=== PATIENT | male | born 1950 | race Caucasian/White ===

== ENCOUNTER 2019-12-05 10:33 | Emergency (ER) | payer OTHER, SELFPAY ==
[2019-12-05 10:39] VITALS: BP 180/81; PULSE 53; RESP 16; TEMP 36; O2SAT 100
--- NOTE | 2019-12-05 11:02 | W.ED.GENAD ---
Discharge Plan Disposition Patient Disposition: HOME Condition: Stable Discharge Details Chief Complaint: Orthopedic Clinical Impression: Trigger finger Primary Care Provider: [place] Provider: Sarah Conte Home Meds and New Rx's Prescriptions: Continued Stateless Dream topical DAILY RF: 0 Discharge Instructions Instructions: Trigger Finger (ED) Additional Instructions: Follow up with primary care provider in 3-5 days. Return to ED sooner if any worsening or concerns. You were placed on a call list for Orthopedic follow up sooner. Wear splint as directed at night. Take Ibuprofen every 6 hours as needed for pain and swelling. Medical Decision Making Patient has had chronic tenderness and d3rd finger locking up at night. He has tenderness and swelling over the palmar surface of his MCP. He is requesting a steroid injection. Reportedly has a appointment with Ortho in 1 month. Will put him on the call list for Ortho follow up sooner if deemed neccessary. Offered patient a finger splint to wear at night, which he refused. Discussed Ibuprofen for pain. HPI General Date/Time Provider Initiated Documentation: 12/05/19 10:41. History of Present Illness 69 year old M presents to the emergency department with the chief complaint of Hand pain, described as moderate, with intensity rated at 4. Quality is described as aching, and is localized to the right and upper extremity (Hand palmar surface). Patient reports no radiation. Patient started experiencing this year(s) (5) No relieving factors improve symptom(s), Patient notes no other symptoms.. Patient did receive the following treatments prior to arrival, none Related Data Home Medications Medication Instructions Recorded Confirmed Stateless Dream TOPICAL DAILY 12/05/19 Allergies Allergy/AdvReac Type Severity Reaction Status Date / Time Penicillins Allergy Anaphylaxsi Unverified 12/05/19 10:43 s General Stated Complaint: Orthopedic MELE: 4 Review of Systems All systems reviewed & are unremarkable except as noted in HPI and below Respiratory Respiratory: Reports system reviewed and no additional complaints, except as docu Gastrointestinal Gastrointestinal: Reports system reviewed and no additional complaints, except as docu Musculoskeletal Musculoskeletal: Reports stiffness (Right hand palmar swelling over MCP joint) [facility] Social History Smoking/Tobacco Use Status: Former Tobacco Use Drug use: Never Exam Extrem Right upper extremity: normal capillary refill and hand Details: abnormal to inspection (Swelling over palmar surface MCP), tenderness and abnormal ROM of finger (Pain with full flexion. Full ROM ); no foreign bodies and no puncture wound; no cyanosis and no edema Hand/finger images: 1. Swelling and tenderness to palpation Course Vital Signs Vital signs: Vital Signs Temperature 36 C L 12/05/19 10:39 Pulse 53 L 12/05/19 10:39 Respiratory Rate 16 12/05/19 10:39 Blood Pressure 180/81 H 12/05/19 10:39 Pulse Oximetry 100 12/05/19 10:39 Temperature 36 C L 12/05/19 10:39 Temperature Source Skin 12/05/19 10:39 Pulse 53 L 12/05/19 10:39 Respiratory Rate 16 12/05/19 10:39 Respiratory Effort Non-Labored 12/05/19 10:39 Blood Pressure 180/81 H 12/05/19 10:39 Blood Pressure Position Sitting 12/05/19 10:39 Pulse Oximetry 100 12/05/19 10:39 Oxygen Delivery Method Room Air 12/05/19 10:39 Oxygen Flow Rate 0 12/05/19 10:39 Pain Level 2 12/05/19 10:39
== END 2019-12-05 11:18 | disposition home or self-care (01) ==
PROVIDERS: Emergency Provider Registered Nurse Emergency
DX: M65.331 Trigger finger, right middle finger (principal)
CPT/HCPCS: 99282

== ENCOUNTER 2020-05-01 02:40 | Outpatient (CLI) | payer OTHER, SELFPAY ==
--- NOTE | 2020-05-01 | DI.MRI_ITS ---
EXAM: MR LUMBAR SPINE WO/W CLINICAL HISTORY: LOW BACK PAIN,M54.5,PROSTATE CA,C61, ? METS. TECHNIQUE: Multiplanar multisequence MRI of the Lumbar Spine was performed. CONTRAST MATERIAL: IV Contrast: 17 mL of Dotarem contrast administered. COMPARISON: No exams were available for comparison FINDINGS: Bones: The last intervertebral disc space is designated the L5/S1 level for the numbering purpose of this examination. The vertebral body heights are well maintained. Alignment is satisfactory. There i s fatty marrow replacement in the sacrum and inferior endplate of L5, presumably secondary to radiati on therapy. The more superior vertebral bodies show some red marrow reconversion. There is high signa l on T2 and STIR images at the right lateral aspect of the T1 vertebral body corresponding to promine nt osteophyte. This likely represents degenerative signal change. Cord: The conus tip ends at the T12 level. It is of normal size and signal intensity. T12-L1: No disc herniations or bulges are present. L1-2: There are endplate osteophytes. There is a focal left lateral disc protrusion without apparent nerve impingement. There are facet joint degenerative changes but no significant neural foraminal na rrowing or central canal stenosis. L2-3: There is mild concentric disc bulging and mild facet degenerative changes combining to cause mi ld bilateral neural foraminal narrowing. L3-4: Mild disc bulging. Facet degenerative changes and ligamentous hypertrophy creating mild centra l canal stenosis and moderate bilateral neural foraminal narrowing. L4-5: Prominent facet degenerative changes and ligamentous hypertrophy as well as mild concentric di sc bulging. There is mild spondylolisthesis. There is moderate to severe central canal stenosis and m oderate bilateral neural foraminal narrowing. There is high signal around the facet joints at this lo cation. L5-S1: Endplate osteophytes, eccentric toward the left. Severe narrowing of the left side of the disc . Mild concentric disc bulging. Facet degenerative changes encroaching on the left neural foramen to moderate to severe degree. Soft tissues: The visualized SI joints and sacrum are well maintained. The paraspinal soft tissues ar e unremarkable. The aorta is normal in diameter. There is no evidence of suspicious enhancement. 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 Multilevel degenerative changes of the discs and facet j oints, greatest at L 4- 5 where there is moderate to severe central canal stenosis as well as neural foraminal narrowing. No metastatic lesions are identified. DATA REPOSITORY:
[2020-05-01] MEDS: Gadoterate meglumine 20 ML VIAL 17 ML IVP (11:41)
[2020-05-01] MEDS: Normal Saline Flush 10 ML SYR IVP (11:41)
== END 2020-05-01 03:00 ==
PROVIDERS: Visit Provider Family Medicine
DX: C61 Malignant neoplasm of prostate (principal); M54.5 Low back pain; M51.37 Other intervertebral disc degeneration, lumbosacral region; M48.07 Spinal stenosis, lumbosacral region
CPT/HCPCS: 72158

== ENCOUNTER 2020-06-03 15:43 | Outpatient (CLI) | payer OTHER, SELFPAY ==
--- NOTE | 2020-06-03 13:30 | DI.RAD_ITS ---
EXAM: XR KNEE LT 4V AP,LAT,MARY,PAT CLINICAL HISTORY: left knee pain. TECHNIQUE: 2D digital imaging was performed. COMPARISON: No exams were available for comparison FINDINGS: There are mild degenerative changes of the left knee. Postsurgical changes of a prior ACL repair are noted. No acute fracture or dislocation is present. The bones are normally mineralized. The soft tissues are unremarkable. IMPRESSION: Mild degenerative changes and postsurgical changes of the left knee. DATA REPOSITORY: RADIATION DOSE DELIVERED:
== END 2020-06-03 16:03 ==
PROVIDERS: Visit Provider Student in an Organized Health Care Education/Training Program
DX: M25.562 Pain in left knee (principal); Z98.890 Other specified postprocedural states; M17.12 Unilateral primary osteoarthritis, left knee
CPT/HCPCS: 99203; 99214; 73564

== ENCOUNTER 2020-06-07 03:46 | Outpatient (CLI) | payer OTHER, SELFPAY ==
--- NOTE | 2020-06-07 08:45 | DI.MRI_ITS ---
EXAM: MR LOWER JOINT LT WO CLINICAL HISTORY: LT KNEE PAIN, INTERNAL DERANGEMENT, M23.92. TECHNIQUE: Multiplanar multisequence MRI was performed. COMPARISON: CR XR KNEE LT 4V AP,LAT,MARY,PAT from 06/03/2020 FINDINGS: BONES: Marrow edema is seen in the medial femoral condyle and the proximal tibia. There is artifact from the prior ACL repair. JOINTS: Mild thinning of the articular cartilage is seen in the medial femoral tibial joint. There i s a small amount of fluid in the joint space. TENDONS: Extensor mechanism: Unremarkable. Medial retinaculum: Unremarkable. Lateral retinaculum: Unremarkable. Popliteus: Unremarkable. MUSCLES: Unremarkable. MENISCI: There is increased signal seen in the body of the medial meniscus suspicious for tear. Ther e is also increased signal seen in the root of the medial meniscus. Horizontal increased signal is s een in the lateral meniscus consistent with degeneration. SOFT TISSUES: There is a popliteal cyst present. LIGAMENTS: Anterior Cruciate: The ACL repair is unremarkable. Posterior Cruciate: Unremarkable. Medial Collateral:There is thickening of the proximal medial collateral ligament. There is also incr eased signal in the fibers deep to the ligament. Lateral Collateral: Unremarkable. OTHER: IMPRESSION: 1. Medial meniscal tear as described above. 2. Thickening of the proximal medial collateral ligament as described above. Findings suspicious for partial tear/sprain. 3. Bone contusions involving the medial femoral condyle and the proximal tibia. 4. Intact ACL repair. DATA REPOSITORY:
== END 2020-06-07 04:06 ==
PROVIDERS: Visit Provider Student in an Organized Health Care Education/Training Program
DX: S83.242A Other tear of medial meniscus, current injury, left knee, initial encounter (principal); S70.12XA Contusion of left thigh, initial encounter; S80.12XA Contusion of left lower leg, initial encounter
CPT/HCPCS: 73721

== ENCOUNTER → 2020-06-17 09:47 | Outpatient (BNVA) | payer OTHER, SELFPAY | PROVIDERS: Visit Provider Student in an Organized Health Care Education/Training Program | DX: M17.12 Unilateral primary osteoarthritis, left knee (principal); M23.304 Other meniscus derangements, unspecified medial meniscus, left knee | CPT/HCPCS: 20610; 99213; J1040 ==

== ENCOUNTER 2020-09-30 00:28 | Outpatient (CLI) | payer OTHER, SELFPAY ==
--- NOTE | 2020-09-30 | DI.US_ITS ---
EXAM: US AAA SCREENING CLINICAL HISTORY: SCREENING FOR AAA,FORMER SMOKER, [facility],Z00.00 COMPARISON: No exams were available for comparison FINDINGS: Abdominal Aorta: Proximal: 2.8 x 2.6 cm Mid: 2.2 x 2.5 cm Distal: 2.1 x 2.6 cm Iliac's: Right: 1.1 x 1.6 cm Left: 1.3 x 1.6 cm Mild atherosclerosis is present. IMPRESSION: No evidence of abdominal aortic aneurysm. DATA REPOSITORY:
== END 2020-09-30 00:48 ==
PROVIDERS: Visit Provider Family Medicine
DX: Z87.891 Personal history of nicotine dependence (principal)
CPT/HCPCS: 76706

== ENCOUNTER 2020-10-30 19:33 | Outpatient (REF) | payer OTHER, SELFPAY ==
[2020-11-01 14:46] LABS: COVID-19 RT-PCR UVMMC Result Negative (Negative)
== END 2020-10-30 19:53 ==
LOC: NCHCN 19:33
PROVIDERS: Visit Provider Physician Assistant
DX: Z11.59 Encounter for screening for other viral diseases (principal)
CPT/HCPCS: U0003

== ENCOUNTER → 2020-12-02 01:12 | Outpatient (CLI) | payer OTHER, MEDICARE, SELFPAY ==
--- NOTE | 2020-12-02 09:15 | DI.RAD_ITS ---
EXAM: XR HIP PELVIS ADULT BL CLINICAL HISTORY: LT HIP PAIN, M25.552. H/O PROSTATE CA. TECHNIQUE: 2D digital imaging was performed. COMPARISON: No exams were available for comparison FINDINGS: There are mild degenerative changes of the hips bilaterally. Mild degenerative changes are seen in t he lower lumbar spine. The sacroiliac joints and symphysis pubis are unremarkable. The bones are in tact. No suspicious lytic or sclerotic lesions are seen. Vascular calcifications are seen in the so ft tissues. IMPRESSION: Mild degenerative changes of the hips bilaterally. DATA REPOSITORY: RADIATION DOSE DELIVERED:
== END ==
PROVIDERS: PCP Family Medicine; Visit Provider Family Medicine
DX: M16.0 Bilateral primary osteoarthritis of hip (principal)
CPT/HCPCS: 73521

== ENCOUNTER → 2020-12-06 08:17 | Outpatient (BNVA) | payer OTHER, MEDICARE, SELFPAY | PROVIDERS: PCP Family Medicine; Visit Provider Student in an Organized Health Care Education/Training Program | DX: M17.12 Unilateral primary osteoarthritis, left knee (principal) | CPT/HCPCS: 20610; 99212; J1040 ==

== ENCOUNTER → 2021-05-08 03:02 | Outpatient (CLI) | payer MEDICARE, SELFPAY ==
--- NOTE | 2021-05-08 | DI.MRI_ITS ---
Exam(s) MR UPPER JOINT RT WO EXAM: MR UPPER JOINT RT WO CLINICAL HISTORY: RT ROTATOR CUFF TEAR,M75.101,ACUTE INJURY,WEAKNESS C/W TEAR TECHNIQUE: Multiplanar multisequence MRI of the shoulder was performed. COMPARISON: There are no plain films of the shoulder available at the time of this MRI interpretatio n. FINDINGS: MARROW:There is no evidence of fracture, Hill-Sachs deformity, bony Bankart lesion, nor ominous osseo us lesions. ROTATOR CUFF MECHANISM: AC JOINT/ACROMIUM: There are advanced degenerative changes in the AC joint, and there are downgoing o steophytes causing impingement. Undersurface of the acromion is flat.. There is no evidence of os acromiale. Supraspinatus: There is a large full-thickness tear with retraction of the musculotendinous junction to the mid humeral head level. Mild muscle atrophy. Infraspinatus: There is also full-thickness tearing of the infraspinatus tendon above the greater tub erosity. There are few remaining strands. No prominent retraction. Some fatty atrophy of the muscle n oted Teres Minor: There is no evidence of tear of the teres minor tendon. However, there is fatty atrophy of the muscle evident. Subscapularis/anterior cuff: Some tendinitis signal but high-grade but no high-grade tear. There is, however, some partial tearing at the insertional fibers on the lateral aspect of the lesser tuberosit y. BICEPS TENDON: The tendon is attenuated within the intertubercular groove consistent with element of tearing. The intra-articular aspect of the tendon is also somewhat attenuated. Biceps anchor appears torn. LABRUM: There is tearing of the anterosuperior labrum. Posterior labrum is intact. Lower half of the anterior labrum is intact. Inferior labrum is intact. Inferior glenohumeral humeral ligament appears intact. GLENOHUMERAL JOINT: Small amount of increased joint fluid. Mild hyaline cartilage degenerative change s. Small osteophyte inferior humeral head. No large osteophytes. There are noted degenerative subarti cular cysts in the osseous glenoid. A few small degenerative cysts are seen in the greater tuberosity . QUADRILATERAL SPACE: No evidence of mass in this region. Visualized triceps tendon appears intact IMPRESSION: 1. There are full-thickness tears of multiple components of the rotator cuff mechanism including supr aspinatus and infraspinatus as well as partial tearing at the insertional aspect of the anterior cuff -subscapularis. The teres minor is not torn but is atrophic. There is no mass evident in the quadrila teral space to explain this. 2. There is significant impingement at the level of the AC joint which exhibits significant degenerat walter change, including downgoing osteophytes. 3. There is tearing of the anterior superior labrum as well as tear of the biceps tendon. 4. Mild degenerative osteoarthritic degenerative changes in the glenohumeral joint DATA REPOSITORY:
== END ==
PROVIDERS: PCP Family Medicine; Visit Provider Family Medicine
DX: S46.011A Strain of muscle(s) and tendon(s) of the rotator cuff of right shoulder, initial encounter (principal); S46.211A Strain of muscle, fascia and tendon of other parts of biceps, right arm, initial encounter; M25.811 Other specified joint disorders, right shoulder; M19.011 Primary osteoarthritis, right shoulder; R53.1 Weakness; M89.8X1 Other specified disorders of bone, shoulder; X58.XXXA Exposure to other specified factors, initial encounter
CPT/HCPCS: 73221

== ENCOUNTER 2021-05-28 14:18 | Outpatient (CLI) | payer OTHER, MEDICARE, SELFPAY ==
--- NOTE | 2021-05-28 14:00 | DI.RAD_ITS ---
Exam(s) XR SHOULDER RT COMPLETE 2+V EXAM: XR SHOULDER RT COMPLETE 2+V CLINICAL HISTORY: right shoulder pain. TECHNIQUE: 2D digital imaging was performed. COMPARISON: No exams were available for comparison FINDINGS: Two views reveal no evidence of fracture or dislocation or abnormal soft tissue calcifications. Ther e are moderate osteoarthritic degenerative changes in the glenohumeral joint including opposing osteo phytes on the inferior articular surfaces of the humeral head, this despite relative preservation of joint space. Degenerative changes are also noted in the ipsilateral acromioclavicular joint. Subacromial space is not diminished in height. There are no calcified loose bodies evident. No ominous osseous lesions. IMPRESSION: Degenerative changes as described above DATA REPOSITORY: RADIATION DOSE DELIVERED:
== END 2021-05-28 14:19 | disposition home or self-care (01) ==
LOC: DIORS 14:18
PROVIDERS: PCP Family Medicine; Referring Provider Family Medicine; Visit Provider Student in an Organized Health Care Education/Training Program
DX: M25.511 Pain in right shoulder (principal); M75.21 Bicipital tendinitis, right shoulder; M75.101 Unspecified rotator cuff tear or rupture of right shoulder, not specified as traumatic; M12.811 Other specific arthropathies, not elsewhere classified, right shoulder
CPT/HCPCS: 20610; 99203; 73030; J1030

== ENCOUNTER 2022-03-24 16:28 | Outpatient (REF) | payer MEDICARE, OTHER, SELFPAY ==
--- NOTE | 2022-03-24 12:30 | SKI_PTH ---
PATIENT: Otoniel Gary LOC: [facility]#:[id number] AGE/SX: 71/M ROOM: RE03/24/[address]: Jason Collado : 1950 BED: DIS: 03/24/2022 SPEC #: [id number] RECD: 03/24/22 17:11 STATUS: LILIANA SANTIZO #: [id number] TAMELA: 03/24/22 12:[address]: Jason Collado DEPT: Surgical Specimen RECD BY: Demi Hunt Tissues: 1 - SKIN BIOPSY(SHAVE/PUNCH) Procedures: SKIN LEVEL 4 Comments: [id number]
[2022-03-24 17:37] LABS: Abs Immature Grans 0.03 10^3/uL (0.0-0.06); Absolute Basophil Count 0.04 10^3/uL (0.0-0.2); Absolute Eosinophil Count 0.12 10^3/uL (0.0-0.7); Absolute Lymphocyte Count 1.35 10^3/uL (1.2-3.4); Absolute Monocyte Count 0.78 10^3/uL (0.1-0.8); Basophils % 0.6; Eosinophils % 1.7; HCT 43.6 % (40.0-50.0); HGB 14.1 g/dL (13.5-17.5); Immature Grans % 0.4; Lymphocytes % 18.7; MCH 29.5 pg (27.0-33.0); MCHC 32.3 % (32.0-36.0); MCV 91 fL (80-95); Monocytes % 10.8; Neutrophils % 67.8; Platelet Count 288 10^3/uL (130-400); RBC 4.78 10^6/uL (4.36-5.78); RDW 13.2 % (11.8-14.1); RDW-SD 44.6 fL; WBC 7.22 10^3/uL (4.4-10.8)
[2022-03-24 20:00] LABS: ALT 37 U/L (16-63); AST 25 U/L (15-37); Alkaline Phosphatase 62 U/L (46-116); Anion Gap 8.9 mmol/L (3-11); BUN 20 mg/dL (7-18); Bilirubin, Direct 0.2 mg/dL (0.0-0.2); Bilirubin, Total 0.4 mg/dL (0.2-1.0); CO2 25.1 mmol/L (21.0-32.0); Calcium 8.8 mg/dL (8.5-10.1); Chloride 105 mmol/L (98-107); Glucose 96 mg/dL (74-106); Potassium 4.3 mmol/L (3.5-5.1); Sodium 139 mmol/L (136-145); Total Protein 6.7 g/dL (6.4-8.2)
== END 2022-03-24 16:29 | disposition home or self-care (01) ==
LOC: NCHCN 16:28
PROVIDERS: PCP Family Medicine; Visit Provider Family Medicine
DX: L57.0 Actinic keratosis (principal); R42 Dizziness and giddiness; R03.0 Elevated blood-pressure reading, without diagnosis of hypertension; F10.10 Alcohol abuse, uncomplicated
CPT/HCPCS: 80048; 80076; 85025; 88305

== ENCOUNTER 2022-06-15 15:46 | Outpatient (REF) | payer MEDICARE, OTHER, SELFPAY ==
[2022-06-15 19:45] LABS: Magnesium 1.7 mg/dL (1.8-2.4); TSH (W/Ref FT4) 5.92 uIU/mL (0.36-3.74); Vitamin B12 439 pg/mL (193-986)
[2022-06-15 20:08] LABS: FREE T4 0.87 ng/dL (0.76-1.46)
== END 2022-06-15 15:47 | disposition home or self-care (01) ==
LOC: NCHCN 15:46
PROVIDERS: PCP Family Medicine; Visit Provider Family Medicine
DX: R53.83 Other fatigue (principal); F10.20 Alcohol dependence, uncomplicated
CPT/HCPCS: 82607; 83735; 84439; 84443

== ENCOUNTER 2023-03-17 19:43 | Outpatient (REF) | payer MEDICARE, SELFPAY ==
[2023-03-17 16:20] LABS: HCT 43.1 % (40.0-50.0); HGB 14.7 g/dL (13.5-17.5); MCH 30.1 pg (27.0-33.0); MCHC 34.1 % (32.0-36.0); MCV 88 fL (80-95); MPV 9.6 fL (8.0-11.0); Platelet Count 268 10^3/uL (130-400); RBC 4.89 10^6/uL (4.36-5.78); RDW 12.8 % (11.8-14.1); WBC 7.19 10^3/uL (4.4-10.8)
[2023-03-17 16:42] LABS: Anion Gap 8.4 mmol/L (3-11); BUN 19 mg/dL (7-18); CO2 26.6 mmol/L (21.0-32.0); Calcium 9.4 mg/dL (8.5-10.1); Chloride 105 mmol/L (98-107); Estimated GFR 78.98 (mL/min/1.73m2); Glucose 114 mg/dL (74-106); Magnesium 2.1 mg/dL (1.8-2.4); Potassium 4.4 mmol/L (3.5-5.1); Sodium 140 mmol/L (136-145); TSH (W/Ref FT4) 4.74 uIU/mL (0.36-3.74)
[2023-03-17 17:24] LABS: FREE T4 0.94 ng/dL (0.76-1.46)
== END 2023-03-17 19:44 | disposition home or self-care (01) ==
LOC: NCHCN 19:43
PROVIDERS: PCP Family Medicine; Visit Provider Family Medicine
DX: E03.9 Hypothyroidism, unspecified (principal); E83.42 Hypomagnesemia; I10 Essential (primary) hypertension; R42 Dizziness and giddiness; R01.1 Cardiac murmur, unspecified; I45.10 Unspecified right bundle-branch block
CPT/HCPCS: 80048; 85027; 83735; 84439; 84443

== ENCOUNTER 2023-04-13 11:35 | Outpatient (CLI) | payer MEDICARE, SELFPAY ==
--- NOTE | 2023-04-13 11:15 | DI.RAD_ITS ---
Exam(s) XR SHOULDER RT COMPLETE 2+V EXAM: XR SHOULDER RT COMPLETE 2+V CLINICAL HISTORY: RIGHT SHOULDER F/U. TECHNIQUE: 2D digital imaging was performed. COMPARISON: CR XR SHOULDER RT COMPLETE 2+V from 05/28/2021 FINDINGS: Two views: No evidence of acute fracture or dislocation. Significant degenerative changes in the glenohumeral j oint are again noted. Although there is no prominent joint space narrowing, there are opposing moder ate size osteophytes on the inferior articular surfaces of the humeral head and osseous glenoid again noted. Subacromial space is mildly diminished. Degenerative changes in the AC joint again noted. No soft tissue calcifications in the subacromial space seen. Subtle lucency in the acromion noted on the Grashey view. This may indicate fracture in the a chromi um. IMPRESSION: Degenerative changes in the glenohumeral joint. There also degenerative changes again noted in the A C joint. Subtle lucency in the a chromium may indicate fracture. Additional images required DATA REPOSITORY: RADIATION DOSE DELIVERED:
== END 2023-04-13 11:36 | disposition home or self-care (01) ==
LOC: DIORS 11:36
PROVIDERS: PCP Family Medicine; Referring Provider Family Medicine; Visit Provider Student in an Organized Health Care Education/Training Program
DX: M75.101 Unspecified rotator cuff tear or rupture of right shoulder, not specified as traumatic (principal); M75.21 Bicipital tendinitis, right shoulder
CPT/HCPCS: 99213; 73030

== ENCOUNTER 2023-06-29 20:05 | Outpatient (REF) | payer MEDICARE, SELFPAY ==
[2023-06-29 16:00] LABS: Abs Immature Grans 0.03 10^3/uL (0.0-0.06); Absolute Basophil Count 0.06 10^3/uL (0.0-0.2); Absolute Lymphocyte Count 1.07 10^3/uL (1.2-3.4); Absolute Monocyte Count 0.69 10^3/uL (0.1-0.8); Absolute Neutrophil Count 4.73 10^3/uL (1.2-6.7); Basophils % 0.9; Eosinophils % 2.9; HCT 43.9 % (40.0-50.0); HGB 14.7 g/dL (13.5-17.5); Immature Grans % 0.4; Lymphocytes % 15.8; MCH 29.8 pg (27.0-33.0); MCHC 33.5 % (32.0-36.0); MCV 89 fL (80-95); MPV 9.7 fL (8.0-11.0); Monocytes % 10.2; Neutrophils % 69.8; Platelet Count 290 10^3/uL (130-400); RBC 4.94 10^6/uL (4.36-5.78); RDW 12.8 % (11.8-14.1); RDW-SD 41.5 fL; WBC 6.78 10^3/uL (4.4-10.8)
[2023-06-29 16:54] LABS: ALT 32 U/L (16-63); AST 25 U/L (15-37); Albumin 4.1 g/dL (3.4-5.0); Alkaline Phosphatase 66 U/L (46-116); BUN 23 mg/dL (7-18); Bilirubin, Total 0.5 mg/dL (0.2-1.0); CREATININE 1.2 mg/dL (0.70-1.30); Calcium 9.1 mg/dL (8.5-10.1); Chloride 103 mmol/L (98-107); Estimated GFR 63.07 (mL/min/1.73m2); Glucose 101 mg/dL (74-106); NT-proBNP 143 pg/mL (<300); Potassium 4.7 mmol/L (3.5-5.1); Sodium 140 mmol/L (136-145); Total Protein 6.8 g/dL (6.4-8.2)
== END 2023-06-29 20:06 | disposition home or self-care (01) ==
LOC: NCHCN 20:05
PROVIDERS: PCP Family Medicine; Visit Provider Family Medicine
DX: R06.09 Other forms of dyspnea (principal)
CPT/HCPCS: 80053; 83880; 85025

== ENCOUNTER 2023-07-15 10:55 | Emergency (ER) | payer MEDICARE, SELFPAY ==
[2023-07-15] VITALS (42 sets, daily range): BP systolic 126–195; BP diastolic 73–110; PULSE 46–73; RESP 10–23; TEMP 36.9; O2SAT 97–100
--- NOTE | 2023-07-15 10:45 | RT.EKG_ITS ---
APPROVED REPORT Exam: Resting ECG Reason for Exam: SOB Patient Location: E HR:46 bpm ECG Measurements Heart Rate 46 AXIS MS 213 P 20 QRSd 165 QRS -69 QT 481 T 5 QTc 423 Conclusion Sinus bradycardia...rate< 60 Atrial premature complex...SV complex w/ short R-R interval RBBB and LAFB...QRSd >120mS, axis(-40,240) sinus bradycardia, left axis, RBBB
--- NOTE | 2023-07-15 11:15 | DI.RAD_ITS ---
Exam(s) XR PORTABLE CHEST AP EXAM: XR PORTABLE CHEST AP CLINICAL HISTORY: cp sob TECHNIQUE: 2D digital imaging was performed of the chest. One image was obtained. An AP view was ob tained. COMPARISON: No exams were available for comparison FINDINGS: MEDIASTINUM: Normal. HEART: Normal. PULMONARY VASCULATURE: Normal. LUNGS: Clear. PLEURAL SPACE: No pleural effusion or pneumothorax. BONE:Within normal limits for the patient's age. OTHER FINDINGS:Normal. IMPRESSION: No acute pulmonary findings. DATA REPOSITORY: RADIATION DOSE DELIVERED:
--- NOTE | 2023-07-15 11:29 | ED.GENADUL_ITS ---
Discharge Plan Disposition Patient Disposition: Home Discharge Details Chief Complaint: SOB Clinical Impression: Shortness of breath Primary Care Provider: Jason Collado ED Provider: Luis Pop Home Meds and New Rx's Prescriptions: No Action amlodipine 5 mg tablet 5 mg PO 1XD Patient Comments: Take 1 tablet by mouth once a day sildenafil 100 mg tablet 100 mg PO 1XD Patient Comments: Take 0.5-1 tablet by mouth daily prn prior to sexual activity Discharge Instructions Instructions: Dyspnea (ED) Additional Instructions: Please follow-up with cardiology at [facility]. Please return to the emergency department for any worsening symptom Medical Decision Making 73-year-old male presents with progressive shortness of breath and fatigue over the last several months, no chest pain, no leg pain, no history of thromboembolic disease, denies history of coronary disease, EKG showing sinus bradycardia left axis with right bundle branch block; bedside ultrasound showing B-lines throughout lung roberson, patient hypertensive on arrival to the 180s, concern for new onset CHF consider recent OR; low suspicion for aortic pathology or PE or infectious etiology given chronicity. Will obtain basic labs chest x- ray; trial of antihypertensive will start with 5 mg hydralazine, Lasix, close reassessment if tolerates 5 mg hydralazine will add remaining 5mg; disposition pending results and reassessment 13: 12 patient resting comfortably, blood pressure and heart rate both improved. However given initial presentation of severe hypotension and bradycardia will assess CT head for causes of possible Frank's reflex however neurologically intact without focality or headache. Pending CT head and second troponin for discharge 15: 41 patient resting comfortably blood pressure greatly improved, heart rate greatly improved, CT negative, 2 troponin negative. Asymptomatic at this time. Patient be given referral to [facility] cardiology, also encouraged [facility] Home care instructions return precautions give HPI General Date/Time Provider Initiated Documentation: 07/15/23 10:56 . HPI Narrative: 73-year-old male presents with progressive fatigue and shortness of breath over the last couple months. Denies chest pain, denies orthopnea, denies leg swelling or pain Related Data Home Medications Medication Instructions Recorded Confirmed amlodipine 5 mg tablet 5 mg PO 1XD 07/15/23 07/15/23 sildenafil 100 mg tablet 100 mg PO 1XD 07/15/23 07/15/23 Allergies Allergy/AdvReac Type Severity Reaction Status Date / Time Penicillins Allergy Anaphylaxsi Unverified 07/15/23 12:17 s General Stated Complaint: SOB MELE: 3 Review of Systems Narrative: Review of Systems Constitutional: Fatigue Eyes: negative ENT: negative Cardiovascular: negative Respiratory: Shortness of breath Gastrointestinal: negative : negative Musculoskeletal: negative Skin: negative Neurologic: negative Psych: negative PFSH All Active Problems (Updated 07/15/23 @ 15:43 by Luis Pop MD) Shortness of breath (Acute) Rotator cuff tear, right (Acute) Tendonitis of long head of biceps brachii of right shoulder (Acute) Rotator cuff tear arthropathy of right shoulder (Acute) Unilateral primary osteoarthritis, left knee (Acute) Meniscus, medial, derangement (Acute) Medical History (Updated 07/15/23 @ 15:43 by Luis Pop MD) Prostate CA Social History Smoking/Tobacco Use Status: Former Tobacco Use Smoking risk assessment performed?: Yes Drug use: Never Current gender identity: male Do you feel safe at home: Yes Do you feel safe in your relationship?: Yes Exam Narrative Exam Narrative: Physical Examination General: alert, awake, cooperative, resting comfortably, no acute distress HEENT: normocephalic, atraumatic; PERRL, EOM intact, conjunctiva normal; no nasal discharge; moist mucous membranes, oral and pharyngeal mucosa normal, tolerating secretions Neck: supple, trachea midline; full ROM Chest: normal to inspection Respiratory: normal respiratory effort, speaking in full sentences, clear to auscultation, no wheezing, rales or rhonchi Cardiac: Bradycardia, regular rhythm, S1S2 intact, no murmurs rubs or gallops GI: abdomen soft, non-tender, non-distended; no palpable mass or hepatosplenomegaly Skin: no lesions, rashes or trauma appreciated Neuro: AAOx3, normal speech, moving all extremities Psych: Appropriate mood and affect Course Vital Signs Vital signs: Vital Signs Temperature 36.9 C 07/15/23 11:03 Pulse 52 L 07/15/23 11:03 Respiratory Rate 20 07/15/23 11:03 Blood Pressure 182/110 H 07/15/23 11:03 Pulse Oximetry 99 07/15/23 11:03 Temperature 36.9 C 07/15/23 11:03 Temperature Source Oral 07/15/23 11:03 Pulse 52 L 07/15/23 11:03 Respiratory Rate 20 07/15/23 11:03 Blood Pressure 182/110 H 07/15/23 11:03 Blood Pressure Position Sitting 07/15/23 11:03 Pulse Oximetry 99 07/15/23 11:03 Oxygen Delivery Method Room Air 07/15/23 11:03 Oxygen Flow Rate 0 07/15/23 11:03
[2023-07-15 11:37] LABS: Abs Immature Grans 0.04 10^3/uL (0.0-0.06); Absolute Basophil Count 0.05 10^3/uL (0.0-0.2); Absolute Eosinophil Count 0.07 10^3/uL (0.0-0.7); Absolute Lymphocyte Count 1.09 10^3/uL (1.2-3.4); Absolute Monocyte Count 0.55 10^3/uL (0.1-0.8); Absolute Neutrophil Count 5.11 10^3/uL (1.2-6.7); Basophils % 0.7; HCT 47.9 % (40.0-50.0); HGB 16.2 g/dL (13.5-17.5); Immature Grans % 0.6; Lymphocytes % 15.8; MCH 29.5 pg (27.0-33.0); MCHC 33.8 % (32.0-36.0); MCV 87 fL (80-95); MPV 8.9 fL (8.0-11.0); Neutrophils % 73.9; Platelet Count 266 10^3/uL (130-400); RDW 12.6 % (11.8-14.1); RDW-SD 39.9 fL; WBC 6.91 10^3/uL (4.4-10.8)
[2023-07-15] MEDS: Aspirin 81 MG CHEW 324 MG CH (11:49)
[2023-07-15] MEDS: Furosemide 100 MG/10 ML VIAL 80 MG IVP (11:49)
[2023-07-15] MEDS: hydrALAZINE 20 MG/ML VIAL 10 MG IVP (11:49)
[2023-07-15 11:50] LABS: INR 1.1 (0.9-1.1); PTT Activated 25.2 sec (21.5-31.9); Prothrombin Time 10.8 sec (9.3-11.0)
[2023-07-15 12:02] LABS: ALT 35 U/L (16-63); AST 21 U/L (15-37); Alkaline Phosphatase 68 U/L (46-116); Anion Gap 10.9 mmol/L (3-11); BUN 16 mg/dL (7-18); Bilirubin, Total 0.8 mg/dL (0.2-1.0); CO2 25.1 mmol/L (21.0-32.0); CREATININE 1.1 mg/dL (0.70-1.30); Calcium 9.1 mg/dL (8.5-10.1); Chloride 101 mmol/L (98-107); Estimated GFR 70.01 (mL/min/1.73m2); Glucose 116 mg/dL (74-106); NT-proBNP 275 pg/mL (<300); Potassium 4.1 mmol/L (3.5-5.1); Sodium 137 mmol/L (136-145); TSH (W/Ref FT4) 4.19 uIU/mL (0.36-3.74); Total Protein 7.4 g/dL (6.4-8.2); Troponin I < 50 ng/L (<or=60)
[2023-07-15 12:21] LABS: FREE T4 0.98 ng/dL (0.76-1.46)
--- NOTE | 2023-07-15 13:00 | DI.CT_ITS ---
Exam(s) CT HEAD WO EXAM: CT HEAD WO CLINICAL HISTORY: htn, bradycardia. TECHNIQUE: Imaging Protocol: Axial computed tomography images with coronal and sagittal reformatted images were created and reviewed COMPARISON: No exams were available for comparison FINDINGS: Ventricles and Extra axial spaces: Normal in size and morphology for the patient's age. Hemorrhage: None. Cerebral parenchyma: There are multiple areas of decreased attenuation in the white matter likely ref lecting small vessel ischemic disease. There is no mass effect or midline shift present. Midline shift: None. Brainstem/Cerebellum: Normal. Calvarium: Normal. Visualized Paranasal sinuses/Mastoids: There is pansinusitis. Soft Tissues: Unremarkable. IMPRESSION: 1. No acute intracranial process. 2. Findings were discussed with the emergency department at 2:57 p.m. on 07/15/2023. RADIATION DOSE DELIVERED: 813.13mGy.cm Total DLP DATA REPOSITORY: All CT scans at this facility are submitted to the National Radiology Data Registry (NRDR) Dose Index Registry (DIR) with the [employer] ([employer]). RADIATION OPTIMIZATION: All CT scans at this facility use at least one of these dose optimization te chniques: automated exposure control; mA and/or kV adjustment per patient size (includes targeted exa ms where dose is matched to clinical indication); or iterative reconstruction.
[2023-07-15 14:57] LABS: Troponin I < 50 ng/L (<or=60)
--- NOTE | 2023-07-15 16:37 | NUR.NOTE ---
Referral given to Care Management to [facility] Cardiology for SOB in one week. Nursing Note:
== END 2023-07-15 15:52 | disposition home or self-care (01) ==
PROVIDERS: Emergency Provider Emergency Medicine; PCP Family Medicine
DX: R06.02 Shortness of breath (principal)
CPT/HCPCS: 80053; 93005; 96374; 96375; 99285; 70450; 71045; 83735; 83880; 84439; 84443; 84484; 85025; 85610; 85730; 93010; 99284; J0360; J1940

== ENCOUNTER → 2023-07-23 13:55 | Outpatient (CLI) | payer OTHER, SELFPAY ==
--- NOTE | 2023-07-23 15:00 | DI.US_ITS ---
APPROVED REPORT EXAM: Comprehensive 2D, Doppler, and color-flow Echocardiogram Patient Location: Out-Patient Scrap Metal Burner: Darryl Jones RDCS (AE) Indications: dizziness, new heart murmur, h/o presyncope, new RBBB Other Information Study Quality: Good Conclusion Normal left ventricular wall thickness and chamber size. Ejection fraction is 60 to 65%. Wall motio n is normal Normal right ventricular size and systolic function Both atria are normal in size. There is an atrial septal aneurysm without evidence of patent foramen ovale Aortic valve is sclerotic and trileaflet with mild regurgitation. There is no aortic stenosis Normal mitral valve with mild regurgitation Normal tricuspid valve with mild regurgitation. Estimated right ventricular systolic pressure is 24 mmHg Both the aortic root and ascending aorta measure approximately 4 cm Wall motion Left Ventricle The left ventricle is normal size. The left ventricular systolic function is normal. The left ventric ular ejection fraction is within the normal range. There is normal left ventricular wall thickness. T here is normal LV segmental wall motion. There is no ventricular septal defect visualized. LVEF is 60 -65%. Right Ventricle The right ventricle is normal size. The right ventricular systolic function is normal. The RVSP is 24 .4 mmHg. Atria The left atrium size is normal. The right atrium size is normal. Atrial septal aneurysm is present wi thout PFO. Aortic Valve The Aortic valve is sclerotic. Aortic valve is trileaflet. There is no aortic valvular stenosis. Mild aortic regurgitation. Mitral Valve The mitral valve is normal in structure. No evidence of mitral valve stenosis. Mild mitral regurgitat ion. Tricuspid Valve The tricuspid valve is normal in structure. There is no tricuspid valve stenosis. Mild tricuspid regu rgitation. Pulmonic Valve The pulmonary valve is normal in structure. There is no pulmonic valvular stenosis. Mild pulmonic reg urgitation. Great Vessels Aortic root is moderately dilated. The ascending aorta is moderately dilated. Aortic arch is not well visualized. IVC is normal in size and collapses >50% with inspiration. Pericardium There is no pericardial effusion. 2D Dimensions IVSD d PLAX 0.93 cm M: 0.6-1.2 Ao Root d 3.99 cm M: 3.1 - 3.7 LVPW d PLAX 0.92 cm M: 0.6 - 1.2 Ao Asc Diam d 4.05 cm M: 2.6 - 3.4 LVID d PLAX 4.90 cm M: 4.2 - 5.8 LVDs 3.15 cm M: 2.5 - 4.0 LV EF Teichholz 64.9 % FS 35.63 % LV EDV (Teich) 112.6 mL LV ESV (Teich) 39.5 mL Stroke Vol Index (Teich) 37.90 M-Mode TAPSE 2.39 cm (M/F) >1.7 Auto EF LV EDV A4C 143.6 mL LV EDV A2C 129.0 mL LV EDV BP 139.7 mL LV ESV A4C 57.7 mL LV ESV A2C 52.4 mL LV ESV BP 54.9 mL LVEF(%) A4C 59.8 % LVEF(%) A2C 59.3 % LVEF(%) BP 60.7 % LV SV A4C 85.9 ml LV SV A2C 76.5 ml LV SV BP 84.8 ml LV CO A4C 4.4 L/min LV CO A2C 3.8 L/min LV CO BP 4.1 L/min HR A4C 50.91 BPM HR A2C 49.11 BPM LV EDV Index (BP) LA Volume LA Length A4C 5.0 cm LA Length A2C LA Area A4C s 10.85 cm2 LA Area A2C s LA Vol A4C A-L 20.04 mL LA Vol A2C A-L LA Vol Biplane A-L LA Vol A4C MOD 19.4 mL LA Vol A2C MOD LA Vol BP MOD RA Volume RA Area A4C 12.1 cm2 RA ESV A4C (A-L) 26.1mL RA Vol/BSA A4C A-L RA Length A4C 4.8 cm RA ESV A4C (MOD) 25.3mL LV Diastology MV E' medial 0.068 (>0.07 m/s) MV E Vmax 0.67 (0.4-1.3 m/s) MV E/E' MED 9.87 (<14) MV A Vmax 0.80 (0.4-1.3 m/s) MV E' lateral 0.079 (>0.1 m/s) E/A Ratio 0.8 MV E/E' LAT 8.44 (<14) MV E' Average 0.074 m/s MV E/E'(average) 9.10 Aortic Valve AoV Vmax 1.87 m/s LVOT Vmax 1.28 m/s AoV Peak Grad 41.2 mmHg LVOT Peak Grad 6.6 mmHg AoV Area (Vmax) 1.99 cm2 LVOT VTI 0.305 m AoV VTI 0.440 m LVOT Mean Grad 3.3 mmHg AoV Mean Cuong. 1.18 m/s LVOT SV 88.20 mL AoV Mean Grad 6.4 mmHg LVOT Diam s 1.90 cm AoV Area (VTI) 2.00 cm2 AV Regurg Peak Gr. 68.40 mmHg Velocity Ratio 0.68 AR Decel Marion 1.7m/sec2 AR DT 2504 msec AR PHT 726 msec AR Vmax 4.14 m/s Mitral Valve MV DT 149 (160-240 msec) Pulmonary Valve PV Vmax 1.18 (0.5-1.5 m/s) RVOT Vmax 0.66 m/s PV Peak Grad 5.6 mmHg RVOT Peak Gr. 1.7 mmHg PV Mean Cuong 0.80 m/s RVOT VTI 0.196 m PV Mean Grad 2.9 mmHg RVOT Mean Gr. 0.9 mmHg Tricuspid Valve RA Pressure 3.00 mmHg TR Vmax 2.31 m/s TR Peak Grad 21.4 mmHg RVSP (TR) 24.4 mmHg
== END ==
PROVIDERS: PCP Family Medicine; Visit Provider Physician Assistant Medical
DX: R42 Dizziness and giddiness (principal); R01.1 Cardiac murmur, unspecified
CPT/HCPCS: 93306

== ENCOUNTER → 2023-09-07 07:11 | Outpatient (CLI) | payer OTHER, SELFPAY ==
--- NOTE | 2023-09-07 | ETT_ITS ---
APPROVED REPORT Exam: Exercise Treadmill Patient Location: Out-Patient Room/Bed: Stress Nurse: Tracey Bradshaw RN Ordering Provider:FRANKLIN ROWAN, Contact Number: [phone] BMI: 28.34 Baseline Rhythm: Sinus Bradycardia Comment: 1st degree AV block, RBBB Indications: BARCLAY Medical History Medical History: Prostate CA, HTN Cardiac Medications: Amlodipine, tadalafil, telmisartan Allergies: Penicillin Cardiac Risk Factors: HTN Previous Cardiac Procedures: None Pretest Chest Pain Characteristics: None Exercise History: Physically active Physical Disabilities: None Lung Sounds: Clear to auscultation Heart Sounds: Bradycardia Stress Test Details Test: Exercise stress testing was performed using a Tripp protocol. Rest Stress HR Resting HR Supine: 44 bpm Max Heart Rate (APMHR): 145 bpm Resting HR Standin bpm Target HR (85% APMHR): 123 bpm Max HR Achieved: 110 bpm % of APMHR: 76 Recovery HR: 54 bpm HR response to stress: Blunted HR response to stress BP Resting BP Supine: 184/90 mmHg Resting BP Standin/88 mmHg Max BP: 185/82 mmHg Recovery BP: 178/82 mmHg BP response to stress: Normal blood pressure response to stress. ECG Resting ECG: Sinus Rhythm, RBBB, 1st degree AV block Ectopy: None Stress ECG: Sinus Tachycardia, RBBB, 1st degree AV block ST Change: Nondiagnostic low heart rate Arrhythmia: Rare PAC, Rare PVC Recovery ECG: Sinus Bradycardia, RBBB, 1st degree AV block Recovery ST Change: Nondiagnostic low heart rate Recovery Arrhythmia: Rare PAC, rare PVC Clinical Reason for Termination: Dyspnea Stress Symptoms: Dyspnea, General Fatigue Exercise duration: 07 min43 sec Highest Stage Reached: Stage 3: 3.4 mph at 14% grade. Exercise capacity: 9.70 METs Angina Score: None Tariq Treadmill Score: 5.7 Rate Pressure Product: [id number] Stress ECG Conclusion 1. Resting electrocardiogram showed a right bundle branch block 2. Patient exercised on the Tripp protocol and completed a workload of 9.7 METS, stopping due to fati katelin 3. Normal blood pressure response to exercise. Peak heart rate achieved was 76% of predicted heart r ate for age 4. The electrocardiographic portion of the test was nondiagnostic due to inadequate heart rate 5. There were no significant dysrhythmias Tariq Treadmill Score is 5.7 which is Low risk. Stress Test Summary STAGE Time (mins) Speed (mph) Grade (%) HR BP SpO2 SYMPTOMS METS Supine 44 184/90 96 Standing 52 166/88 96 1 3 1.7 10 75 140/80 96 Mild SOB 4.5 2 6 2.5 12 89 140/80 Severe SOB 7 3 9 3.4 14 103 10 1 min recovery 65 185/82 96 Mild SOB 3 min recovery 58 180/80 96 SOB resolving 6 min recovery 54 178/82 97 All symptoms resolved Patient unable to reach target HR due to severe SOB.
== END ==
PROVIDERS: PCP Family Medicine; Visit Provider Nurse Practitioner Adult Health
DX: R06.09 Other forms of dyspnea (principal)
CPT/HCPCS: 93017

== ENCOUNTER 2025-07-09 13:42 | Emergency (ER) | payer OTHER, SELFPAY ==
[2025-07-09 13:54] VITALS: BP 161/78; PULSE 48; RESP 16; TEMP 36.7; O2SAT 94
--- NOTE | 2025-07-09 14:00 | DI.US_ITS ---
Exam(s) US LOWER EXTREMITY VENOUS RT EXAM: US LOWER EXTREMITY VENOUS RT CLINICAL HISTORY: swollen x 2 days, eval DVT TECHNIQUE: Right lower extremity venous ultrasound performed using grayscale, color-flow, and spectral Doppler analysis. COMPARISON: No exams were available for comparison FINDINGS: The right common femoral, femoral and popliteal veins demonstrate normal compressibility, augmentation, and color Doppler. The posterior tibial veins are patent. The saphenofemoral junction is unremarkable. There is no evidence of a Ott cyst. The soft tissues are unremarkable. IMPRESSION: No evidence of a right lower extremity DVT. DATA REPOSITORY:
--- NOTE | 2025-07-09 15:16 | ED.GENADUL_ITS ---
Discharge Plan Disposition Patient Disposition: Home Condition: Stable Discharge Details Clinical Impression: Cellulitis of right leg without foot Primary Care Provider: Jason Collado ED Provider: Yajaira Noonan Home Meds and New Rx's Prescriptions: New cefpodoxime 200 mg tablet 200 mg PO BID 10 Days Qty: 20 0RF Rx Instructions: must administer with a meal/food No Action amlodipine 5 mg tablet 5 mg PO 1XD Patient Comments: Take 1 tablet by mouth once a day sildenafil 100 mg tablet 100 mg PO 1XD Patient Comments: Take 0.5-1 tablet by mouth daily prn prior to sexual activity aspirin 81 mg tablet 81 mg PO DAILY Discharge Instructions Instructions: Cellulitis (Skin Infection), Adult ED Additional Instructions: You were seen in the emergency department today for evaluation of right lower extremity swelling. In her department you to full physical examination performed, and had an ultrasound that did not show any evidence of blood clot in the leg. We discussed possibilities for why this is occurring, and I am suspicious for a mild skin and soft tissue infection known as cellulitis. We have started you on an antibiotic called cefpodoxime which you should take twice a day for the next 10 days. If your symptoms do not improve, you develop a fever, weakness or numbness of your right foot, or any other symptoms that cause you concern you need to return for reevaluation. The antibiotic that we have started you on is in a separate class from the penicillins, but please still be mindful of any potential allergic reaction symptoms. Please follow-up with your primary care provider in the next few days to discuss this visit and any symptoms that change, worsen, or persist. Thank you for allowing us to be part of your care. HPI General Mode of arrival: ambulatory . Date/Time Provider Initiated Documentation: 07/09/25 14:04 . Limitations to Documentation: no limitations . Information obtained by: patient, family and old records reviewed . HPI Narrative: This is a 75-year-old male patient presents to the emergency department with 2 to 3 days of gradually worsening swelling and redness of the right lower extremity. The patient reports that he had no preceding trauma or injury, and has otherwise been in his normal state of health. He does not have any history of swelling in his legs prior. [facility]. He denies fevers or chills, shortness of breath, chest pain, weakness, numbness, or tingling of the affected right lower extremity. Does not have significant pain associated with the swelling. Has not taken any medications prior to arrival, denies recent antibiotic use Related Data Home Medications ?Medication ?Instructions ?Recorded ?Confirmed amlodipine 5 mg tablet 5 mg PO 1XD 07/15/23 5 sildenafil 100 mg tablet 100 mg PO 1XD 07/15/2307/09 aspirin 81 mg tablet 81 mg PO DAILY 07/09/2506/16 cefpodoxime 200 mg tablet 200 mg PO BID 10 days #20 ta bs 07/09/25 Previous Rx's ?Medication ?Instructions ?Recorded cefpodoxime 200 mg tablet 200 mg PO BID 10 days #20 ta bs 07/09/25 Allergies Allergy/AdvReac Type Severity Reaction Status Date / Time Penicillins Allergy Anaphylaxsi Verified 07/09/25 13:52 s General Stated Complaint: Vascular MELE: 3 Exam Narrative Exam Narrative: Gen: Awake and alert, in no apparent distress HEENT: Non-icteric sclera Neck: Supple Lungs: No apparent respiratory distress, normal respiratory effort. CV: Appears well perfused Abdomen: Non-distended MSK: Moves 4 extremities without apparent limitation in ROM. The right lower extremity has 1+ peripheral edema with mild warmth, redness, and induration from the ankle to just distal to the knee. He has a few small scabs and cuts in various stages of healing to the lower extremity. He has strong DP pulses, full range of motion of the knee, ankle, and foot, and brisk capillary refill. No sensory deficits noted, patient is ambulatory. Skin: Visualized skin without rashes, cyanosis except as noted above Neuro: Normal Gait, no obvious focal deficits or facial asymmetry. Speaks in full, clear sentences. Psych: Appropriate for situation. Course Vital Signs Vital signs: Vital Signs Temperature 36.7 C 07/09/25 13:54 Pulse 48 L 07/09/25 13:54 Respiratory Rate 16 07/09/25 13:54 Blood Pressure 161/78 H 07/09/25 13:54 Pulse Oximetry 94 07/09/25 13:54 Temperature 36.7 C 07/09/25 13:54 Pulse 48 L 07/09/25 13:54 Respiratory Rate 16 07/09/25 13:54 Blood Pressure 161/78 H 07/09/25 13:54 Blood Pressure Position Supine 07/09/25 13:54 Pulse Oximetry 94 07/09/25 13:54 Oxygen Delivery Method Room Air 07/09/25 13:54 Oxygen Flow Rate 0 07/09/25 13:54 Pain Level 0 07/09/25 13:54 Medical Decision Making This is a 75-year-old male patient presenting for evaluation of right lower extremity swelling. Reassuringly, the patient is otherwise asymptomatic and has no concerning vital sign changes such as fever, tachycardia, or hypotension. Differential includes but is not limited to DVT, cellulitis, certainly considered arterial occlusion though the patient is without pulse deficits, no weakness or numbness to suggest spinal nerve root compression, spinal cord injury, stroke, etc. The unilaterality of the complaint makes it less likely to be due to heart failure, nephrotic syndrome, liver failure. We obtained the DVT ultrasound, which shows no evidence of right lower extremity DVT. Given this, and given the mild skin breaks/injuries that I appreciate, I am most suspicious for cellulitis. I had a shared decision-making conversation with the patient regarding labs, and at this time he is desiring to hold off and have the [facility] on any blood work that needs to be performed. I do not think that this is unreasonable in this otherwise hemodynamically appropriate patient. 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 We discussed return precautions, to include fever and chills, shortness of breath, chest pain, numbness, tingling, weakness of the right lower extremity, and any other symptoms or causing concern. At this time, the patient has had a full medical evaluation and is safe for discharge to home. They are hemodynamically stable, ambulatory, and tolerating PO. They are understanding of the follow-up plan and return precautions. They left our facility without incident. Yajaira Noonan MD [facility] All Active Problems (Updated 07/09/25 @ 15:25 by Yajaira Noonan MD) Cellulitis of right leg without foot (Acute) Rotator cuff tear, right (Acute) Tendonitis of long head of biceps brachii of right shoulder (Acute) Rotator cuff tear arthropathy of right shoulder (Acute) Unilateral primary osteoarthritis, left knee (Acute) Meniscus, medial, derangement (Acute) Medical History (Updated 07/09/25 @ 15:25 by Yajaira Noonan MD) Prostate CA Social History Smoking/Tobacco Use Status: Former Tobacco Use Smoking risk assessment performed?: Yes Alcohol Intake: current Alcohol Intake frequency: 3 or more drinks per day Alcohol type: wine Drug use: Never Current gender identity: male Do you feel safe at home: Yes Do you feel safe in your relationship?: Yes PAWSS Have you Been Recently Intoxicated or Drunk Within the Last 30 days?: Yes Have you Ever Experienced Previous Episodes of Alcohol Withdrawal?: No Have you ever Experienced Withdrawal Seizures?: No Have you ever Experienced Delirium Tremens(DT)s?: No Have you ever undergone Alcohol Rehabilitation Treatment (i.e, inpt ot outpatient treatment programs)?: No Have you ever Experienced Blackouts?: No Have you ever Combined Alcohol with other Downers within the last 90 days?: No Have you ever Combined Alcohol with any other Substance of Abuse during the last 90 days?: No Positive Blood Alcohol level on Presentation? [PCS.BAL]: No Evidence of Increased Autonomic Activity (i.e. HR>120, tremor, sweating, agitation, nausea)?: No Result: 1
[2025-07-09] MEDS: Cefpodoxime 200 MG TAB PO (15:37)
[2025-07-09 15:41] VITALS: BP 162/69; PULSE 52; RESP 16; O2SAT 99
== END 2025-07-09 15:43 | disposition home or self-care (01) ==
PROVIDERS: Emergency Provider Emergency Medicine; PCP Family Medicine
DX: L03.115 Cellulitis of right lower limb (principal); R60.0 Localized edema
CPT/HCPCS: 99283; 99284; 93971